=== PATIENT | female | born 1945 | race African-American/Black ===

== ENCOUNTER 2016-07-05 19:22 | Emergency (ER) | payer OTHER ==
[~2016-07-05] VITALS: Ht 160 cm; Wt 86.0 kg
[~2016-07-05 19:22] MED LIST: GLYBERIDE; LOTREL; METFORMIN; TRIAVIL; [UNRECOGNIZED DRUG - OTHER]; [UNRECOGNIZED DRUG - OTHER]
[2016-07-05 20:57] LABS: CLARITY URINE CLEAR (CLEAR); COLOR URINE YELLOW (YELLOW); GLUCOSE URINE NEGATIVE (NEGATIVE); KETONES URINE TRACE (NEGATIVE); LEUKOCYTE ESTERASE URINE 1+ (NEGATIVE); NITRITE URINE NEGATIVE (NEGATIVE); OCCULT BLOOD URINE NEGATIVE (NEGATIVE); PROTEIN URINE NEGATIVE (NEGATIVE); SPECIFIC GRAVITY URINE 1.027 (1.005-1.030)
[2016-07-05] MEDS ORDERED: IBUPROFEN 600MG TABLET PO ONE (22:30)
[2016-07-06 04:06] VITALS: BP 135/70
== END 2016-07-06 04:21 | disposition home or self-care (01) ==
LOC: ER 21:24
DX: M54.5 Low back pain (principal); E11.9 Type 2 diabetes mellitus without complications; I10 Essential (primary) hypertension; Z79.84 Long term (current) use of oral hypoglycemic drugs; Z79.899 Other long term (current) drug therapy
CPT/HCPCS: 72100; 72131; 81001; 99285

== ENCOUNTER 2017-10-13 16:32 | Emergency (ER) | payer OTHER ==
[~2017-10-13] VITALS: Ht 160 cm; Wt 86.0 kg
[~2017-10-13 16:32] MED LIST changes: +GLYB5TAB7 PO; -GLYBERIDE; +METF500T6 PO; -METFORMIN
[2017-10-13 20:45] VITALS: BP 135/70
== END 2017-10-13 22:19 | disposition home or self-care (01) ==
LOC: ER 16:32
DX: R22.1 Localized swelling, mass and lump, neck (principal); E11.9 Type 2 diabetes mellitus without complications; I10 Essential (primary) hypertension; Z90.49 Acquired absence of other specified parts of digestive tract; Z79.899 Other long term (current) drug therapy
CPT/HCPCS: 76536; 82962; 87070; 87430; 99285

== ENCOUNTER 2018-08-12 12:08 | Emergency (ER) | payer OTHER ==
[~2018-08-12] VITALS: Ht 162.6 cm; Wt 81.0 kg
[~2018-08-12 12:08] MED LIST changes: +METF-414 PO; -METF500T6 PO
[2018-08-12] MEDS ORDERED: KETOROLAC 60MG/2ML VIAL IM ONE (13:15)
[2018-08-12 13:45] VITALS: BP 124/70
== END 2018-08-12 13:53 | disposition home or self-care (01) ==
LOC: ER 12:08
DX: M25.562 Pain in left knee (principal); M19.90 Unspecified osteoarthritis, unspecified site; E11.9 Type 2 diabetes mellitus without complications; I10 Essential (primary) hypertension; Z90.49 Acquired absence of other specified parts of digestive tract
CPT/HCPCS: 96372; 99283; J1885

== ENCOUNTER 2019-02-12 13:59 | Emergency (ER) | payer OTHER ==
[~2019-02-12] VITALS: Ht 160 cm; Wt 77.0 kg
[2019-02-12] MEDS ORDERED: MECLIZINE 25MG TABLET PO ONE (16:30)
[2019-02-12 16:36] LABS: BASOPHILS % 0.7 % (0.0-2.0); EOSINOPHILS % 1.7 % (0.0-5.0); HEMATOCRIT. 30.5 % (36.0-48.0); HEMOGLOBIN. 10.1 g/dL (12.0-16.0); LYMPHOCYTES % 38.9 % (20.0-50.0); MEAN CORPUSCULAR HEMOGLOBIN 32.9 pg (28.0-32.0); MEAN CORPUSCULAR VOLUME 99.3 fL (81.0-99.0); MONOCYTES % 6.3 % (2.0-8.0); NEUTROPHILS % 52.4 % (40.0-76.0); PLATELET 296 x1000/uL (130-400); RED BLOOD CELL COUNT 3.07 mill/uL (4.2-5.4); RED CELL DISTRIBUTION WIDTH 13.6 % (11.6-14.6)
[2019-02-12 16:44] LABS: CHLORIDE 106 mEq/L (98-107)
[2019-02-12 20:32] VITALS: BP 110/70
== END 2019-02-12 20:32 | disposition home or self-care (01) ==
LOC: ER 14:08
DX: R42 Dizziness and giddiness (principal); E86.0 Dehydration; D64.9 Anemia, unspecified; I10 Essential (primary) hypertension; E11.9 Type 2 diabetes mellitus without complications; Z90.49 Acquired absence of other specified parts of digestive tract
CPT/HCPCS: 36415; 70450; 71045; 80053; 83880; 84484; 85025; 93005; 99284; J8597

== ENCOUNTER 2019-06-02 16:42 | Emergency (ER) | payer OTHER ==
[~2019-06-02] VITALS: Ht 162.6 cm; Wt 84.0 kg
[2019-06-02 18:46] VITALS: BP 130/72
== END 2019-06-02 18:48 | disposition home or self-care (01) ==
LOC: ER 16:42
DX: R06.02 Shortness of breath (principal); F41.9 Anxiety disorder, unspecified; E11.9 Type 2 diabetes mellitus without complications; I10 Essential (primary) hypertension; Z90.49 Acquired absence of other specified parts of digestive tract; Z79.84 Long term (current) use of oral hypoglycemic drugs
CPT/HCPCS: 71045; 93005; 99283

== ENCOUNTER 2019-07-02 17:18 | Emergency (ER) | payer OTHER ==
[~2019-07-02] VITALS: Ht 160 cm; Wt 90.0 kg
[2019-07-02 19:51] LABS: BASOPHILS % 0.7 % (0.0-2.0); EOSINOPHILS % 1.2 % (0.0-5.0); HEMATOCRIT. 31.3 % (36.0-48.0); HEMOGLOBIN. 10.6 g/dL (12.0-16.0); LYMPHOCYTES % 31.8 % (20.0-50.0); MEAN CORPUSCULAR VOLUME 98.1 fL (81.0-99.0); MONOCYTES % 6.7 % (2.0-8.0); NEUTROPHILS % 59.6 % (40.0-76.0); PLATELET 311 x1000/uL (130-400); RED BLOOD CELL COUNT 3.19 mill/uL (4.2-5.4); RED CELL DISTRIBUTION WIDTH 13.6 % (11.6-14.6)
[2019-07-02 19:54] LABS: CHLORIDE 108 mEq/L (98-107)
[2019-07-02] MEDS ORDERED: IOHEXOL-350 100 ML BOTTLE ONE (23:21)
[2019-07-02 23:47] VITALS: BP 142/74
== END 2019-07-02 23:49 | disposition home or self-care (01) ==
LOC: ER 17:18
DX: R06.02 Shortness of breath (principal); E11.9 Type 2 diabetes mellitus without complications; I10 Essential (primary) hypertension; Z90.49 Acquired absence of other specified parts of digestive tract; Z79.84 Long term (current) use of oral hypoglycemic drugs
CPT/HCPCS: 36415; 71045; 71275; 80053; 83880; 84484; 85025; 85379; 93005; 99285; Q9967

== ENCOUNTER 2019-11-22 19:11 | Emergency (ER) | payer OTHER ==
[~2019-11-22] VITALS: Ht 160 cm; Wt 84.0 kg
[2019-11-22] MEDS ORDERED: ACETAMINOPHEN 325MG TABLET PO ONE (19:30)
[2019-11-22 21:26] VITALS: BP 135/82
== END 2019-11-22 21:55 | disposition home or self-care (01) ==
LOC: ER 19:11
DX: S39.012A Strain of muscle, fascia and tendon of lower back, initial encounter (principal); S66.912A Strain of unspecified muscle, fascia and tendon at wrist and hand level, left hand, initial encounter; I10 Essential (primary) hypertension; E11.9 Type 2 diabetes mellitus without complications; Z90.49 Acquired absence of other specified parts of digestive tract; W18.30XA Fall on same level, unspecified, initial encounter; Y93.89 Activity, other specified; Y92.89 Other specified places as the place of occurrence of the external cause; Y99.8 Other external cause status
CPT/HCPCS: 72100; 72170; 73110; 99284

== ENCOUNTER 2020-09-16 14:17 | Emergency (ER) | payer OTHER ==
[~2020-09-16] VITALS: Ht 160 cm; Wt 84.0 kg
[2020-09-16 15:46] LABS: BASOPHILS % 0.6 % (0.0-2.0); EOSINOPHILS % 3.5 % (0.0-5.0); HEMATOCRIT. 31.4 % (36.0-48.0); HEMOGLOBIN. 10.1 g/dL (12.0-16.0); LYMPHOCYTES % 29.3 % (20.0-50.0); MEAN CORPUSCULAR HEMOGLOBIN 32.2 pg (28.0-32.0); MEAN CORPUSCULAR VOLUME 100.4 fL (81.0-99.0); MEAN PLATELET VOLUME 7.2 fl (7.4-10.4); MONOCYTES % 7.3 % (2.0-8.0); NEUTROPHILS % 59.3 % (40.0-76.0); PLATELET 339 x1000/uL (130-400); RED BLOOD CELL COUNT 3.13 mill/uL (4.2-5.4); RED CELL DISTRIBUTION WIDTH 13.9 % (11.6-14.6)
[2020-09-16 15:54] LABS: CHLORIDE 112 mEq/L (98-107)
[2020-09-16 17:11] VITALS: BP 142/75
[2020-09-28] MEDS ORDERED: AMLO2.5T45 MT (09:17)
[2020-09-28] MEDS ORDERED: PERP1TAB5 MT (09:17)
[2020-09-29] MEDS ORDERED: AZIT250T12 PO (19:42)
[2020-09-29] MEDS ORDERED: ASPI-1406 PO (19:42)
== END 2020-09-16 17:15 | disposition home or self-care (01) ==
LOC: ER 14:17
DX: R06.02 Shortness of breath (principal); N17.9 Acute kidney failure, unspecified; R60.0 Localized edema; E11.9 Type 2 diabetes mellitus without complications; I10 Essential (primary) hypertension; Z90.49 Acquired absence of other specified parts of digestive tract; Z79.899 Other long term (current) drug therapy
CPT/HCPCS: 36415; 71045; 80053; 83880; 84484; 85025; 93005; 99285

== ENCOUNTER 2021-06-12 23:43 | Inpatient (IN) | payer MEDICARE, OTHER ==
[~2021-06-12] VITALS: Ht 160 cm; Wt 89.4 kg
[~2021-06-12 23:43] MED LIST changes: +AMLO2.5T45 MT; +ASPI-1406 PO; +AZIT250T12 PO; +DIPH28.34 TP; -LOTREL; +PERP1TAB5 MT; +TOPUD MT; -TRIAVIL; -[UNRECOGNIZED DRUG - OTHER]; -[UNRECOGNIZED DRUG - OTHER]
[2021-06-13] MEDS ORDERED: SODIUM CHLORIDE 0.9% 1,000 ML IV ONE (00:45)
[2021-06-13 00:58] LABS: HEMATOCRIT. 33.1 % (36.0-48.0); HEMOGLOBIN. 10.8 g/dL (12.0-16.0); MEAN CORPUSCULAR HEMOGLOBIN 32.5 pg (28.0-32.0); MEAN CORPUSCULAR VOLUME 99.3 fL (81.0-99.0); MEAN PLATELET VOLUME 7.5 fl (7.4-10.4); PLATELET 351 x1000/uL (130-400); RED BLOOD CELL COUNT 3.33 mill/uL (4.2-5.4); RED CELL DISTRIBUTION WIDTH 13.9 % (11.6-14.6)
[2021-06-13 00:59] LABS: CHLORIDE 106 mEq/L (98-107)
[2021-06-13] MEDS ORDERED: ADENOSINE 3 MG/ML 2ML VIAL IV ONE (01:00)
[2021-06-13 04:31] LABS: PLATELET ESTIMATE NORMAL
[2021-06-13 05:25] VITALS: BP 126/69
[2021-06-13] MEDS ORDERED: OLME40TA18 MT (05:42)
[2021-06-13] MEDS ORDERED: PANT40TA51 MT (05:42)
[2021-06-13] MEDS ORDERED: AMLO10TA80 MT (05:42)
[2021-06-13] MEDS ORDERED: IBUP-2029 MT (05:42)
[2021-06-13] MEDS ORDERED: ATOR10TA69 MT (05:42)
[2021-06-13] MEDS ORDERED: ALPR-339 MT (05:42)
[2021-06-13 06:04] VITALS: BP 126/69
[2021-06-13] MEDS ORDERED: DEXTROSE 50% WATER 50ML SYRINGE IV PRN (06:15)
[2021-06-13] MEDS ORDERED: ACETAMINOPHEN 325MG TABLET PO PRN (06:15)
[2021-06-13 08:00] VITALS: BP 103/53
[2021-06-13] MEDS ORDERED: PANTOPRAZOLE SODIUM 40 MG/VIAL IV SCH (09:00)
[2021-06-13] MEDS ORDERED: METOPROLOL TARTRATE 50MG TABLET PO SCH (09:00)
[2021-06-13] MEDS: ENOXAPARIN 30MG/0.3ML SYR SUBCUT SCH (09:34)
[2021-06-13] MEDS: PANTOPRAZOLE SODIUM 40 MG/VIAL IV SCH (09:34)
[2021-06-13] MEDS: ASPIRIN 81MG TABLET PO SCH (09:34)
[2021-06-13 12:00] VITALS: BP 118/62
[2021-06-13] MEDS: BLOOD SUGAR DIAGNOSTIC STRIP TEST SCH ×3 (12:10→21:18)
[2021-06-13] MEDS: INSULIN LISPRO 100 UNITS/ML SUBCUT SCH ×3 (13:16→21:32)
[2021-06-13 16:00] VITALS: BP 128/81
[2021-06-13 16:47] LABS: BASOPHILS % 0.6 % (0.0-2.0); EOSINOPHILS % 1.7 % (0.0-5.0); HEMATOCRIT. 29.9 % (36.0-48.0); LYMPHOCYTES % 28.8 % (20.0-50.0); MEAN CORPUSCULAR HEMOGLOBIN 32.3 pg (28.0-32.0); MEAN CORPUSCULAR VOLUME 96.4 fL (81.0-99.0); MEAN PLATELET VOLUME 7.7 fl (7.4-10.4); MONOCYTES % 6.8 % (2.0-8.0); NEUTROPHILS % 62.1 % (40.0-76.0); PLATELET 313 x1000/uL (130-400); RED CELL DISTRIBUTION WIDTH 13.6 % (11.6-14.6)
[2021-06-13 17:00] LABS: CHLORIDE 109 mEq/L (98-107)
[2021-06-13 17:09] LABS: CREATINE KINASE 107 IU/L (26-192); TOTAL IRON BINDING CAPACITY 301 ug/dL (250-450)
[2021-06-13 18:01] LABS: CLARITY URINE CLEAR (CLEAR); COLOR URINE YELLOW (YELLOW); KETONES URINE NEGATIVE (NEGATIVE); LEUKOCYTE ESTERASE URINE NEGATIVE (NEGATIVE); NITRITE URINE NEGATIVE (NEGATIVE); OCCULT BLOOD URINE NEGATIVE (NEGATIVE); PH URINE 6.5 (4.5-8.0); PROTEIN URINE NEGATIVE (NEGATIVE); UROBILINOGEN URINE 0.2 E.U./dL (0.2-1.0)
[2021-06-13 18:24] LABS: *AMPHETAMINES SCREEN URINE NEGATIVE (NEGATIVE); *BARBITURATES SCREEN URINE NEGATIVE (NEGATIVE); *BENZODIAZEPINES SCREEN URINE NEGATIVE (NEGATIVE); *COCAINE SCREEN URINE NEGATIVE (NEGATIVE); CANNABINOID URINE SCREEN NEGATIVE (NEGATIVE); METHADONE URINE SCREEN NEGATIVE (NEGATIVE); OPIATES URINE SCREEN NEGATIVE (NEGATIVE); PHENCYCLIDINE URINE SCREEN NEGATIVE (NEGATIVE)
[2021-06-13 20:00] VITALS: BP 147/84
[2021-06-13] MEDS ORDERED: ATORVASTATIN CALCIUM 10MG TABLET PO SCH (21:00)
[2021-06-13 23:34] LABS: CREATINE KINASE MB FRACTION 1.8 ng/mL (0.5-3.6)
[2021-06-14] VITALS: BP 122/70
[2021-06-14 04:00] VITALS: BP 106/56
[2021-06-14] MEDS: INSULIN LISPRO 100 UNITS/ML SUBCUT SCH ×2 (05:31→12:43)
[2021-06-14] MEDS: BLOOD SUGAR DIAGNOSTIC STRIP TEST SCH ×2 (05:31→12:43)
[2021-06-14 07:54] LABS: CREATINE KINASE MB FRACTION 1.5 ng/mL (0.5-3.6)
[2021-06-14 07:56] LABS: T4 FREE 1.19 ng/dL (0.76-1.46)
[2021-06-14 08:00] VITALS: BP 145/85
[2021-06-14] MEDS ORDERED: METOPROLOL TARTRATE 25MG TABLET PO SCH (09:00)
[2021-06-14] MEDS: PANTOPRAZOLE SODIUM 40 MG/VIAL IV SCH (09:07)
[2021-06-14] MEDS: ASPIRIN 81MG TABLET PO SCH (09:08)
[2021-06-14] MEDS: ENOXAPARIN 30MG/0.3ML SYR SUBCUT SCH (09:10)
[2021-06-14 10:55] LABS: BASOPHILS % 0.6 % (0.0-2.0); EOSINOPHILS % 5.4 % (0.0-5.0); HEMATOCRIT. 30.6 % (36.0-48.0); HEMOGLOBIN. 10.1 g/dL (12.0-16.0); LYMPHOCYTES % 40.8 % (20.0-50.0); MEAN CORPUSCULAR HEMOGLOBIN 32.1 pg (28.0-32.0); MEAN PLATELET VOLUME 7.9 fl (7.4-10.4); MONOCYTES % 7.9 % (2.0-8.0); NEUTROPHILS % 45.3 % (40.0-76.0); PLATELET 317 x1000/uL (130-400); RED BLOOD CELL COUNT 3.15 mill/uL (4.2-5.4); RED CELL DISTRIBUTION WIDTH 13.7 % (11.6-14.6)
[2021-06-14 12:00] VITALS: BP 143/73
[2021-06-14] MEDS ORDERED: METO25TA6 PO (12:17)
[2021-06-14 13:41] VITALS: BP 143/73
== END 2021-06-14 14:06 | disposition home or self-care (01) | DRG 308 ==
LOC: ER 23:43 → EDBEDREQ 06-13 01:26 → EDBEDREQTM 06-13 03:37 → EDBEDREQ 06-13 03:37 → ENRESERV 06-13 04:17 → 8WST 06-13 04:49
PROVIDERS: ADMIT Internal Medicine; ATTEND Internal Medicine
DX: I47.1 Supraventricular tachycardia (principal); N17.0 Acute kidney failure with tubular necrosis; I25.10 Atherosclerotic heart disease of native coronary artery without angina pectoris; E78.5 Hyperlipidemia, unspecified; D64.9 Anemia, unspecified; E11.65 Type 2 diabetes mellitus with hyperglycemia; E66.9 Obesity, unspecified; K21.9 Gastro-esophageal reflux disease without esophagitis; I12.9 Hypertensive chronic kidney disease with stage 1 through stage 4 chronic kidney disease, or unspecified chronic kidney disease; E11.22 Type 2 diabetes mellitus with diabetic chronic kidney disease; N18.9 Chronic kidney disease, unspecified; K80.80 Other cholelithiasis without obstruction; Z79.84 Long term (current) use of oral hypoglycemic drugs; Z79.899 Other long term (current) drug therapy; Z82.49 Family history of ischemic heart disease and other diseases of the circulatory system; Z90.49 Acquired absence of other specified parts of digestive tract; Z68.34 Body mass index [BMI] 34.0-34.9, adult; R79.89 Other specified abnormal findings of blood chemistry
CPT/HCPCS: 36415; 71045; 78582; 80048; 80053; 80061; 80305; 81003; 82270; 82550; 82553; 82962; 83540; 83550; 83605; 83880; 84145; 84439; 84443; 84484; 85025; 85044; 85379; 86850; 86900; 93005; 93970; 99291; A9558; C9113; J0153; J1650; J1815; J7030

== ENCOUNTER 2021-07-12 15:39 | Emergency (ER) | payer MEDICARE ==
[~2021-07-12] VITALS: Ht 165.1 cm; Wt 75.0 kg
[~2021-07-12 15:39] MED LIST changes: +ALPR-339 MT; -AMLO2.5T45 MT; -ASPI-1406 PO; +ATOR10TA69 MT; -AZIT250T12 PO; -DIPH28.34 TP; +IBUP-2029 MT; +METO25TA6 PO; +PANT40TA51 MT; -TOPUD MT
[2021-07-12 16:19] LABS: BASOPHILS % 0.3 % (0.0-2.0); EOSINOPHILS % 0.3 % (0.0-5.0); HEMATOCRIT. 34.2 % (36.0-48.0); HEMOGLOBIN. 11.2 g/dL (12.0-16.0); LYMPHOCYTES % 19.7 % (20.0-50.0); MEAN CORPUSCULAR HEMOGLOBIN 32.3 pg (28.0-32.0); MEAN CORPUSCULAR VOLUME 98.7 fL (81.0-99.0); MEAN PLATELET VOLUME 7.4 fl (7.4-10.4); MONOCYTES % 5.2 % (2.0-8.0); NEUTROPHILS % 74.5 % (40.0-76.0); PLATELET 383 x1000/uL (130-400); RED BLOOD CELL COUNT 3.46 mill/uL (4.2-5.4); RED CELL DISTRIBUTION WIDTH 14.2 % (11.6-14.6)
[2021-07-12 16:28] LABS: CHLORIDE 108 mEq/L (98-107)
[2021-07-12] MEDS ORDERED: SODIUM CHLORIDE 0.9% 1,000 ML IV ONE (16:30)
[2021-07-12] MEDS ORDERED: ADENOSINE 3 MG/ML 2ML VIAL IV ONE (16:30)
[2021-07-12 20:00] VITALS: BP 185/67
== END 2021-07-12 20:20 | disposition home or self-care (01) ==
LOC: ER 15:39
DX: I47.1 Supraventricular tachycardia (principal); R77.8 Other specified abnormalities of plasma proteins; D64.9 Anemia, unspecified; E11.9 Type 2 diabetes mellitus without complications; I10 Essential (primary) hypertension; Z90.49 Acquired absence of other specified parts of digestive tract; Z79.899 Other long term (current) drug therapy
CPT/HCPCS: 36415; 71045; 80053; 82962; 83880; 84484; 85025; 93005; 96361; 96374; 99285; J0153; J7030

== ENCOUNTER 2021-08-23 08:23 | Emergency (ER) | payer MEDICARE ==
[~2021-08-23] VITALS: Ht 160 cm; Wt 86.0 kg
[2021-08-23 10:03] LABS: BASOPHILS % 0.3 % (0.0-2.0); EOSINOPHILS % 2.1 % (0.0-5.0); HEMATOCRIT. 32.9 % (36.0-48.0); HEMOGLOBIN. 10.9 g/dL (12.0-16.0); LYMPHOCYTES % 21.8 % (20.0-50.0); MEAN CORPUSCULAR HEMOGLOBIN 32.2 pg (28.0-32.0); MEAN CORPUSCULAR VOLUME 97.6 fL (81.0-99.0); MEAN PLATELET VOLUME 6.9 fl (7.4-10.4); MONOCYTES % 5.6 % (2.0-8.0); NEUTROPHILS % 70.2 % (40.0-76.0); PLATELET 338 x1000/uL (130-400); RED BLOOD CELL COUNT 3.38 mill/uL (4.2-5.4); RED CELL DISTRIBUTION WIDTH 13.9 % (11.6-14.6)
[2021-08-23 10:12] LABS: CHLORIDE 106 mEq/L (98-107)
[2021-08-23 11:40] VITALS: BP 149/78
== END 2021-08-23 11:43 | disposition home or self-care (01) ==
LOC: ER 09:04
DX: R00.2 Palpitations (principal); I10 Essential (primary) hypertension; E78.00 Pure hypercholesterolemia, unspecified; E11.9 Type 2 diabetes mellitus without complications; Z79.899 Other long term (current) drug therapy; Z90.49 Acquired absence of other specified parts of digestive tract
CPT/HCPCS: 36415; 71045; 80053; 83735; 83880; 84484; 85025; 93005; 99285

== ENCOUNTER 2023-10-03 14:45 | Emergency (ER) | payer MEDICARE ==
[~2023-10-03] VITALS: Ht 160 cm; Wt 84.0 kg
[~2023-10-03 14:45] MED LIST changes: -ALPR-339 MT; +ALPR0.25 PO; +AMLO10TA80 PO; +CIPR-263 MT; +EMPA10TA PO; -GLYB5TAB7 PO; -IBUP-2029 MT; +LATA2.5D14 EACHEYE; +METO-539 PO; -METO25TA6 PO; +OLME1TAB92 PO
[2023-10-03 14:57] VITALS: O2SAT 99
[2023-10-03 15:58] LABS: BASOPHILS % 0.4 % (0.0-2.0); DIFFERENTIAL COMMENT 0; EOSINOPHILS % 4.2 % (0.0-5.0); HEMATOCRIT. 34.1 % (36.0-48.0); LYMPHOCYTES % 30.9 % (20.0-50.0); MEAN CORPUSCULAR HGB CONC 32.3 g/dL (31.0-37.0); MEAN CORPUSCULAR VOLUME 102.1 fL (81.0-99.0); MEAN PLATELET VOLUME 7.1 fl (7.4-10.4); MONOCYTES % 6.8 % (2.0-8.0); NEUTROPHILS % 57.7 % (40.0-76.0); PLATELET 355 x1000/uL (130-400); RED BLOOD CELL COUNT 3.34 mill/uL (4.2-5.4); RED CELL DISTRIBUTION WIDTH 13.8 % (11.6-14.6)
[2023-10-03 16:03] LABS: POTASSIUM 5.1 mEq/L (3.5-5.1)
[2023-10-03 16:04] LABS: CALCIUM 10.2 mg/dL (8.7-10.4)
[2023-10-03 16:09] LABS: CREATININE 1.6 mg/dL (0.6-1.0)
[2023-10-03 18:49] LABS: ALANINE AMINOTRANSFERASE 9 IU/L (10-49); ALBUMIN 4.5 g/dL (3.2-4.8); ASPARTATE AMINOTRANSFERASE 15 IU/L (<34); BILIRUBIN DIRECT 0.1 mg/dL (<=3.0); BILIRUBIN TOTAL 0.4 mg/dL (0.1-1.0); PROTEIN TOTAL 7.3 g/dL (6.0-8.3)
[2023-10-03] MEDS: SODIUM CHLORIDE 0.9% 500 ML IV ONE (18:50)
[2023-10-03] MEDS: METOCLOPRAMIDE HCL 10MG/2ML VIAL IV SCH (18:50)
[2023-10-03] MEDS: ACETAMINOPHEN 325MG TABLET PO SCH (18:50)
[2023-10-04 02:00] VITALS: BP 149/76; PULSE 84; RESP 18; TEMP 36.72516; O2SAT 100
== END 2023-10-04 02:00 | disposition home or self-care (01) ==
LOC: ER 14:45
DX: R51.9 Headache, unspecified (principal); E11.9 Type 2 diabetes mellitus without complications; I10 Essential (primary) hypertension; Z90.49 Acquired absence of other specified parts of digestive tract; Z79.899 Other long term (current) drug therapy
CPT/HCPCS: 99291; 96374; 70450; 96361; 80076; 80048; 85025; 36415; J2765

== ENCOUNTER 2024-02-23 12:28 | Emergency (ER) | payer MEDICARE ==
[~2024-02-23] VITALS: Ht 160 cm; Wt 80.0 kg
[~2024-02-23 12:28] MED LIST changes: -AMLO10TA80 PO; -CIPR-263 MT; +DILT180C66 MT; +GLYB5TAB7 PO; -METF-414 PO; -OLME1TAB92 PO; -PERP1TAB5 MT
[2024-02-23 12:42] VITALS: BP 178/77; RESP 18; TEMP 98.8; O2SAT 97
[2024-02-23 12:56] VITALS: PULSE 83; O2SAT 98
[2024-02-23 16:14] LABS: BASOPHILS % 0.9 % (0.0-2.0); EOSINOPHILS % 0.5 % (0.0-5.0); HEMATOCRIT. 33.3 % (36.0-48.0); HEMOGLOBIN. 10.9 g/dL (12.0-16.0); MEAN CORPUSCULAR HEMOGLOBIN 32.8 pg (28.0-32.0); MEAN CORPUSCULAR HGB CONC 32.8 g/dL (31.0-37.0); MEAN CORPUSCULAR VOLUME 99.9 fL (81.0-99.0); MEAN PLATELET VOLUME 7.6 fl (7.4-10.4); NEUTROPHILS % 71.6 % (40.0-76.0); PLATELET 248 x1000/uL (130-400); RED BLOOD CELL COUNT 3.33 mill/uL (4.2-5.4); RED CELL DISTRIBUTION WIDTH 14.6 % (11.6-14.6); WHITE BLOOD COUNT 7.5 x1000/uL (4.5-11.0)
[2024-02-23 16:19] LABS: CHLORIDE 104 mEq/L (98-107); POTASSIUM 4.4 mEq/L (3.5-5.1); SODIUM 137 mEq/L (136-145)
[2024-02-23 16:20] LABS: CARBON DIOXIDE 24 mEq/L (21-32)
[2024-02-23 16:21] LABS: CALCIUM 10.5 mg/dL (8.7-10.4)
[2024-02-23 16:25] LABS: GLUCOSE 221 mg/dL (70-105); UREA NITROGEN BLOOD 28 mg/dL (9-23)
[2024-02-23 16:27] LABS: ALANINE AMINOTRANSFERASE 25 IU/L (10-49); ALBUMIN 4.5 g/dL (3.2-4.8); ASPARTATE AMINOTRANSFERASE 21 IU/L (<34)
[2024-02-23 16:28] LABS: BILIRUBIN DIRECT 0.2 mg/dL (<=3.0); BILIRUBIN TOTAL 0.7 mg/dL (0.1-1.0); PROTEIN TOTAL 7.3 g/dL (6.0-8.3)
== END 2024-02-23 17:46 | disposition home or self-care (01) ==
LOC: ER 12:35
DX: R11.2 Nausea with vomiting, unspecified (principal); R63.0 Anorexia; I12.9 Hypertensive chronic kidney disease with stage 1 through stage 4 chronic kidney disease, or unspecified chronic kidney disease; E11.22 Type 2 diabetes mellitus with diabetic chronic kidney disease; M19.90 Unspecified osteoarthritis, unspecified site; E78.5 Hyperlipidemia, unspecified; N18.9 Chronic kidney disease, unspecified; Z90.49 Acquired absence of other specified parts of digestive tract; Z79.899 Other long term (current) drug therapy; Z79.84 Long term (current) use of oral hypoglycemic drugs
CPT/HCPCS: 36415; 80048; 80076; 85025; 93005; 99284

== ENCOUNTER 2024-03-19 14:46 | Emergency (ER) | payer MEDICARE ==
[~2024-03-19] VITALS: Ht 147.3 cm; Wt 86.2 kg
[2024-03-19 14:52] VITALS: O2SAT 98
[2024-03-19 14:53] VITALS: BP 134/50; PULSE 70; RESP 16; TEMP 36.7; O2SAT 100
[2024-03-19] MEDS ORDERED: SULF1TAB48 MT (18:53)
[2024-03-19] MEDS ORDERED: ACET-2708 PO (18:53)
[2024-03-19] MEDS ORDERED: CLOT15CR27 TP (18:53)
[2024-03-19] MEDS ORDERED: CEPH500C2 MT (18:53)
== END 2024-03-19 19:03 | disposition home or self-care (01) ==
LOC: ER 14:46
DX: L03.317 Cellulitis of buttock (principal); S20.219A Contusion of unspecified front wall of thorax, initial encounter; E11.9 Type 2 diabetes mellitus without complications; I11.9 Hypertensive heart disease without heart failure; M19.90 Unspecified osteoarthritis, unspecified site; Z79.84 Long term (current) use of oral hypoglycemic drugs; Z79.899 Other long term (current) drug therapy; Z90.49 Acquired absence of other specified parts of digestive tract; W19.XXXA Unspecified fall, initial encounter; Y93.89 Activity, other specified; Y92.89 Other specified places as the place of occurrence of the external cause; Y99.8 Other external cause status
CPT/HCPCS: 71045; 99283

== ENCOUNTER 2024-03-27 20:05 | Emergency (ER) | payer MEDICARE ==
[~2024-03-27] VITALS: Ht 162.6 cm; Wt 115.0 kg
[~2024-03-27 20:05] MED LIST changes: +ACET-2708 PO; +CEPH500C2 MT; +CLOT15CR27 TP; +SULF1TAB48 MT
[2024-03-27 20:25] VITALS: BP 118/80; PULSE 83; RESP 18; TEMP 36.9; O2SAT 99
[2024-03-28] MEDS ORDERED: CLIN-116 MT (16:22)
[2024-03-28] MEDS ORDERED: P50 MT (16:22)
== END 2024-03-27 23:17 | disposition left against medical advice (07) ==
LOC: ER 20:05
DX: R60.0 Localized edema (principal); E11.9 Type 2 diabetes mellitus without complications; I10 Essential (primary) hypertension; Z53.21 Procedure and treatment not carried out due to patient leaving prior to being seen by health care provider

== ENCOUNTER 2024-03-28 14:14 | Emergency (ER) | payer MEDICARE ==
[~2024-03-28] VITALS: Ht 160 cm; Wt 77.1 kg
[2024-03-28 14:28] VITALS: TEMP 36.8; O2SAT 100
[2024-03-28] MEDS ORDERED: P50 MT (16:22)
[2024-03-28] MEDS ORDERED: CLIN-116 MT (16:22)
[2024-03-28 19:54] VITALS: BP 131/62; PULSE 72; RESP 17; O2SAT 96
== END 2024-03-28 19:56 | disposition home or self-care (01) ==
LOC: ER 14:18
DX: T78.40XA Allergy, unspecified, initial encounter (principal); E11.9 Type 2 diabetes mellitus without complications; I10 Essential (primary) hypertension; M19.90 Unspecified osteoarthritis, unspecified site; Z79.84 Long term (current) use of oral hypoglycemic drugs; Z79.899 Other long term (current) drug therapy; Z88.1 Allergy status to other antibiotic agents; Z88.2 Allergy status to sulfonamides; Z90.49 Acquired absence of other specified parts of digestive tract
CPT/HCPCS: 99283

== ENCOUNTER 2024-04-01 20:56 | Emergency (ER) | payer MEDICARE ==
[~2024-04-01] VITALS: Ht 160 cm; Wt 77.0 kg
[~2024-04-01 20:56] MED LIST changes: +CLIN-116 MT; +P50 MT
[2024-04-01 20:58] VITALS: O2SAT 99
[2024-04-01 23:34] LABS: BASOPHILS % 0.6 % (0.0-2.0); DIFFERENTIAL COMMENT 0; HEMATOCRIT. 31.7 % (36.0-48.0); HEMOGLOBIN. 10.5 g/dL (12.0-16.0); LYMPHOCYTES % 13.7 % (20.0-50.0); MEAN CORPUSCULAR HEMOGLOBIN 33.4 pg (28.0-32.0); MEAN CORPUSCULAR VOLUME 101.1 fL (81.0-99.0); MEAN PLATELET VOLUME 7.6 fl (7.4-10.4); MONOCYTES % 3.1 % (2.0-8.0); NEUTROPHILS % 82.6 % (40.0-76.0); PLATELET 298 x1000/uL (130-400); RED BLOOD CELL COUNT 3.14 mill/uL (4.2-5.4); RED CELL DISTRIBUTION WIDTH 14.5 % (11.6-14.6); WHITE BLOOD COUNT 8.2 x1000/uL (4.5-11.0)
[2024-04-01 23:39] LABS: CHLORIDE 103 mEq/L (98-107); SODIUM 135 mEq/L (136-145)
[2024-04-01 23:40] LABS: CARBON DIOXIDE 22 mEq/L (21-32)
[2024-04-01 23:41] LABS: CALCIUM 10.4 mg/dL (8.7-10.4)
[2024-04-01 23:45] LABS: CREATININE 1.8 mg/dL (0.6-1.0); GLUCOSE 282 mg/dL (70-105)
[2024-04-01 23:46] LABS: UREA NITROGEN BLOOD 28 mg/dL (9-23)
[2024-04-01 23:54] LABS: BETA HYDROXYBUTYRATE < 0.1 mMol/L (0.0-0.3)
[2024-04-02 00:30] VITALS: BP 141/73; PULSE 85; RESP 19; TEMP 37.1; O2SAT 98
[2024-04-14] MEDS ORDERED: METO25TA6 PO (13:13)
[2024-04-14] MEDS ORDERED: ATOR10TA PO (13:13)
== END 2024-04-02 00:31 | disposition home or self-care (01) ==
LOC: ER 20:56
DX: I12.9 Hypertensive chronic kidney disease with stage 1 through stage 4 chronic kidney disease, or unspecified chronic kidney disease (principal); N18.9 Chronic kidney disease, unspecified; E11.22 Type 2 diabetes mellitus with diabetic chronic kidney disease; D64.9 Anemia, unspecified; Z88.1 Allergy status to other antibiotic agents; Z88.2 Allergy status to sulfonamides; Z90.49 Acquired absence of other specified parts of digestive tract; Z79.899 Other long term (current) drug therapy
CPT/HCPCS: 36415; 80048; 82010; 82962; 85025; 99283